=== PATIENT | female | born 1935 | race Caucasian/White ===

== ENCOUNTER 2016-09-11 11:49 | Inpatient (IN) ==
[2016-09-11] MEDS ORDERED: ACETAMINOPHEN 325 MG TABLET PO PRN ×2 (16:30→16:35)
[2016-09-11] MEDS ORDERED: SODIUM CHLORIDE 0.9% 250 ML IV PRN (16:30)
[2016-09-11] MEDS ORDERED: diphenhydrAMINE CAP 25 MG CAPSULE PO PRN (16:30)
[2016-09-11] MEDS ORDERED: DOCUSATE SODIUM 100 MG CAPSULE PO PRN (16:35)
[2016-09-11] MEDS ORDERED: ZALEPLON 5 MG CAPSULE PO PRN (16:35)
[2016-09-11] MEDS ORDERED: LACTULOSE 20 GM/30 ML UDCUP PO PRN (16:35)
[2016-09-11] MEDS ORDERED: PROMETHAZINE 25 MG TABLET PO PRN (16:35)
[2016-09-11] MEDS ORDERED: ONDANSETRON 4 MG/2 ML VIAL IV PRN (16:35)
[2016-09-11] MEDS ORDERED: BISACODYL 5 MG TABLET PO PRN (16:35)
--- NOTE | 2016-09-11 16:39 | Nephrology Consult Note ---
History of Present Illness Chief complaint: Increased BUN and creatinine History of present illness: Ms. Murrell is a 80 year old female who I have seen in the outpatient setting for increasing creatinine. The patient was referred about a month ago for an increased creatinine of 5 mg/dL. The patient had a normal creatinine about 9 months ago about 6-8 weeks ago the patient began to feel poorly and was noted to have a increased creatinine of around 4 mg/dL at that time she was subsequently admitted to her local hospital and started on antibiotics for UTI. The patient's symptoms persisted and her creatinine did not improve. When I saw her I did a antibody workup including an IVONNE Anca and anti-GBM as well as C3 and C4 which were unremarkable. The patient underwent a kidney biopsy last week the results of which are pending. This past week the patient states she is progressively felt worse with decreasing appetite and increasing nausea. Patient also has decreased energy and gets tired easily with minimal exertion. Patient has also had increased sleepiness. Today the patient states she was feeling very dizzy and passed out a couple of times. Patient's hematocrit was noted to be around 24% at her local emergency room today. During her previous hospitalization about 6-8 weeks ago she was noted to have a hematocrit of 21%. Patient was also noted to have a creatinine of 8 mg/dL today. ROS: Head - denies headaches ENT - denies sore throat Lymphatics - denies lymphadenopathy Hematology - denies bleeding problems Heart - denies chest pain Lungs - denies shortness of breath but gets tired easily Abdomen - denies abdominal pain Musculoskeletal -positive arthritis Skin - denies rash Neurology - denies stroke General - denies fever, she states she has been shaking a lot today in her hands -patient states she has not been making as much urine as she usually does and is been having some dysuria and itching. PE: General: in no acute distress Eyes: Pupils are round and reactive, conjunctivae are clear ENT: Nose is clear, O/P is benign Neck: Supple, no thyromegaly Lymphatics: No cervical, supraclavicular or axillary adenopathy Heart: Regular rate and rhythm, no edema Lungs: Clear to auscultation anteriorly, chest expansion symmetric Abdomen: Soft, normoactive bowel sounds, no hepatomegaly Musculoskeletal: No joint erythema or effusions or joint asymmetry Skin: Normal turgor, normal hydration, no rash Neuro/Psych: Alert and cooperative with fair insight Home Medications Medication Instructions Recorded Confirmed Type Amlodipine Besylate 2.5 mg PO DAILY 08/31/16 09/11/16 History Carvedilol [Coreg] 3.125 mg PO BID 08/31/16 09/11/16 History Ferrous Sulfate [Iron] 325 mg PO DAILY 08/31/16 09/11/16 History Linagliptin [Tradjenta] 5 mg PO DAILY W/BREAKFAST 08/31/16 09/11/16 History Lisinopril/Hydrochlorothiazide 1 each PO DAILY 08/31/16 09/11/16 History [Lisinopril-Hctz 20-25 mg Tab] Pravastatin [Pravachol] 40 mg PO DAILY 08/31/16 09/11/16 History cloNIDine TAB [Catapres Tab] 1 tablet PO TID 08/31/16 09/11/16 History Allergies Allergy/AdvReac Type Severity Reaction Status Date / Time codeine Allergy Severe Vomiting Verified 08/31/16 10:37 Medical,Surgical,& Family Hx - Medical History Cardio: History of: Hypertension Psychological: No history of: Anxiety Disorders, ADHD, Behavior Problems, Bipolar Disorder, Depression, Previous Suicide Attempt, Psychiatric/Substance Abuse Tx, Schizophrenia, Violent Behavior, Psychiatric Problems Neurology: No history of: Seizures HEENT: History of: Ear Problem Endocrine: History of: Diabetes Mellitus (NIDDM) Renal: History of: Renal Failure Gastrointestinal: Comment Only: Ulcerative Colitis (DIVERTICULITIS) Musculoskeletal: History of: Musculoskeletal Problems (OA) Reproductive: History of: Reproductive Problems - Surgical History Thoracic Surgeries: Comment Only: Kidney (Renal Surgery) (RENAL BX) Abdominal Surgeries: Surgical HX of: Colonoscopy, EGD Reproductive Surgeries: Surgical HX of;: Hysterectomy Orthopedic Surgeries: Surgical HX of;: Total Knee Replacement (RIGHT) - Family History Family History: Reports;: Family Cancer (BROTHER), Family Diabetes (DAD), Family Heart Disease (DAD BROTHER DAUGHTER), Family Hypertension (PARENTS), Family Stroke (DAUGHTER) - Social History Smoking Status: Never smoker Frequency of Alcohol Use: None Type of Drug Use: None Exam - Vital Signs Vital signs: Period Temp Pulse Resp BP Sys/Nieves Pulse Ox Last 24 Hr 98.0 F-98.1 F 101-112 18-20 151-166/68-83 97-100 Assessment and Plan (1) Acute renal failure Status: Acute Assessment and plan: This patient's biopsy is pending hopefully will clear some tomorrow, I am going to ask surgery to place a HD catheter and will start dialysis once that is in place. The patient's antibody workup has been unremarkable thus far. Current Visit: Yes (2) Diabetes mellitus Status: Acute Assessment and plan: I will place her on a soft sliding scale Current Visit: Yes (3) Hypertension Status: Acute Assessment and plan: We will resume her home antihypertensives Current Visit: Yes (4) Anemia Status: Acute Assessment and plan: I am going to transfuse her 2 units packed red blood cells in light of her syncopal spells. I will also check iron studies folate and B12, Hemoccult her stool and ask GI to see her in consultation Current Visit: Yes (5) Syncope Status: Acute Current Visit: Yes (6) Arthritis Status: Acute Current Visit: Yes (7) Dysuria Status: Acute Current Visit: Yes (8) Nausea Status: Acute Current Visit: Yes (9) Malaise Status: Acute Current Visit: Yes
[2016-09-11] MEDS ORDERED: GLUCAGON 1 MG VIAL IM PRN (16:48)
[2016-09-11] MEDS ORDERED: DEXTROSE 50% 25 GM/50 ML VIAL IV PRN (16:48)
[2016-09-11] MEDS: SODIUM CHLORIDE 0.9% 1,000 ML IV SCH (17:06)
[2016-09-11] MEDS: PANTOPRAZOLE 40 MG TABLET PO SCH (17:07)
[2016-09-11 17:33] LABS: Basophils % 0.2 % (0.0-0.8); Eosinophils % 0.1 % (0.00-10.9); Hematocrit 23.2 VOL% (35.7-47.0); Hemoglobin 7.8 GM/DL (12.0-16.0); Immature Granulocytes % 0.4 %; Immature Granulocytes Absolute 0.04 #; Lymphocytes # 1.7 10*3/uL (1.4-4.0); Lymphocytes % 17.3 % (21.3-54.2); Mean Corpuscular HGB Conc 33.6 GM/DL (32-36); Mean Corpuscular Hemoglobin 29 PG (27-34); Mean Corpuscular Volume 86.2 FL (87-102); Monocytes # 0.7 10*3/uL (0.11-0.8); Monocytes % 7.5 % (1.7-12.7); Neutrophils # 7.1 10*3/uL (1.4-7.4); Neutrophils % 74.5 % (38.7-73.9); Platelet Count 308 T/CUMM (130-400); Red Blood Count 2.69 MC/CUMM (3.8-5.5); Red Cell Distribution Width 12.5 % (9.3-17.3); White Blood Count 9.5 T/CUMM (4-12)
[2016-09-11 17:52] LABS: % Iron Saturation 59.4 % (18-50); Calcium 8.8 MG/DL (8.5-10.1); Ferritin 615.7 ng/ml (8-252); Osmolality,Calculated 309.5 MOS/KG (273-304); Phosphorous 9.9 MG/DL (2.5-4.9); Potassium 4.2 MMOL/L (3.5-5.1)
[2016-09-11 17:59] LABS: Folate > 24.0 NG/ML (5.4-24.0); Vitamin B12 660 PG/ML (211-911)
[2016-09-11] MEDS: INSULIN REGULAR 100 UNIT/ML SUBCUT SCH (20:40)
[2016-09-11] MEDS: CARVEDILOL 3.125 MG TABLET PO SCH (20:41)
[2016-09-11] MEDS: cloNIDine 0.1 MG TABLET PO SCH (20:41)
[2016-09-12 00:29] LABS: Apearance,Urine Slightly Hazy (Clear); Bacteria,Urine Occasional /HPF (Few); Bilirubin,Urine Negative (Negative); Blood, Urine Moderate mg/dL (Negative); Glucose,Urine (UA) 50 mg/dL (Negative); Ketones,Urine Negative (Negative); Nitrite,Urine Negative (Negative); Protein,Urine 30 MG/DL; RBC,Urine 1 /HPF (0-4); Squamous Epithelial Cell,Urine Occasional /HPF (0-10); Urine Color Straw (Yellow); Urine Specific Gravity 1.009 (1.001-1.035); Urine Urobilinogen < 2.0 EU/DL (0.2-1.0); WBC,Urine 4 /HPF (0-6)
[2016-09-12 06:43] LABS: Basophils % 0.5 % (0.0-0.8); Eosinophils # 0.1 10*3/uL (0.0-0.87); Eosinophils % 1.4 % (0.00-10.9); Hematocrit 27.9 VOL% (35.7-47.0); Immature Granulocytes % 0.4 %; Immature Granulocytes Absolute 0.03 #; Lymphocytes # 1.6 10*3/uL (1.4-4.0); Lymphocytes % 22.2 % (21.3-54.2); Mean Corpuscular HGB Conc 33.7 GM/DL (32-36); Mean Corpuscular Hemoglobin 30 PG (27-34); Mean Platelet Volume 11.7 FL (9.6-12.0); Monocytes # 0.9 10*3/uL (0.11-0.8); Monocytes % 11.7 % (1.7-12.7); Neutrophils # 4.7 10*3/uL (1.4-7.4); Neutrophils % 63.8 % (38.7-73.9); Red Blood Count 3.17 MC/CUMM (3.8-5.5); Red Cell Distribution Width 13.1 % (9.3-17.3); White Blood Count 7.4 T/CUMM (4-12)
--- NOTE | 2016-09-12 06:48 | Physician Query Form ---
CLICK EDIT DOCUMENT TO SELECT QUERY ANSWER --> OK --> SIGN Yaima Sol RN, CCDS Certified Clinical Backpackers Manager W) [phone] (f) [phone] [email or web address] PROVIDERS: Make your selection(s) from the choices in EACH section by typing an "x" and enter comments in the comment section. Please use your independent medical judgment in providing your response. This request does not imply that any particular answer is desired or expected. CLINICAL INDICATORS: (Providers should not edit this section) Patient admitted with acute renal failure, anemia, HH of 7.8/ 23.2 and the patient was given 2 units of blood. Based on the above, could you clarify which of the following conditions you are evaluating, treating, and/or monitoring? ( ) Blood loss anemia ( ) acute ( ) chronic ( ) acute on chronic ( ) Acute blood loss anemia on baseline chronic anemia ( ) Acute blood loss anemia as a complication of a procedure ( ) Iron deficiency anemia not associated with blood loss ( ) Dilutional anemia due to IV fluids ( ) Anemia due to chemotherapy ( ) Anemia due to neoplastic disease (x ) Anemia due to chronic kidney disease ( ) Pernicious anemia ( ) Aplastic anemia ( ) Hemolytic anemia ( ) immune ( ) non-immune - please specify cause: ( ) Anemia due to other condition, please specify: ( ) Clinically unable to determine COMMENTS: Use of terms such as suspected, likely, or probable (associated with a specific diagnosis that is being evaluated, monitored, or treated as if it exists) are acceptable and can be restated in the discharge summary if not ruled out. MTDD
[2016-09-12 06:55] LABS: Hemoglobin 9.4 GM/DL (12.0-16.0); Platelet Count 221 T/CUMM (130-400)
--- NOTE | 2016-09-12 07:09 | General Surgery Consult Note ---
Assessment and Plan (1) Acute renal failure Status: Acute Assessment and plan: Impression: End-stage renal disease Plan: I discussed placement of tunneled hemodialysis catheter with the patient so that she can begin dialysis. We discussed the procedure was performed and anticipated recovery. Risk of the procedure including bleeding, infection, damage to surrounding structures, need for further surgery were all discussed in detail. She would like to proceed. Current Visit: Yes History of Present Illness Chief complaint: consult for hemodialysis catheter placement History of present illness: Ms. Murrell is a 80 year old female admitted with worsening of her chronic renal failure. She is to begin dialysis today. I've been asked to place a tunneled hemodialysis catheter. Home Medications Medication Instructions Recorded Confirmed Type Amlodipine Besylate 2.5 mg PO DAILY 08/31/16 09/11/16 History Carvedilol [Coreg] 3.125 mg PO BID 08/31/16 09/11/16 History Ferrous Sulfate [Iron] 325 mg PO DAILY 08/31/16 09/11/16 History Linagliptin [Tradjenta] 5 mg PO DAILY W/BREAKFAST 08/31/16 09/11/16 History Lisinopril/Hydrochlorothiazide 1 each PO DAILY 08/31/16 09/11/16 History [Lisinopril-Hctz 20-25 mg Tab] Pravastatin [Pravachol] 40 mg PO DAILY 08/31/16 09/11/16 History cloNIDine TAB [Catapres Tab] 1 tablet PO TID 08/31/16 09/11/16 History Allergies Allergy/AdvReac Type Severity Reaction Status Date / Time codeine Allergy Severe Vomiting Verified 08/31/16 10:37 Medical,Surgical,& Family Hx - Medical History Cardio: History of: Hypertension Psychological: No history of: Anxiety Disorders, ADHD, Behavior Problems, Bipolar Disorder, Depression, Previous Suicide Attempt, Psychiatric/Substance Abuse Tx, Schizophrenia, Violent Behavior, Psychiatric Problems Neurology: No history of: Seizures HEENT: History of: Ear Problem Endocrine: History of: Diabetes Mellitus (NIDDM) Renal: History of: Renal Failure Gastrointestinal: Comment Only: Ulcerative Colitis (DIVERTICULITIS) Musculoskeletal: History of: Musculoskeletal Problems (OA) Reproductive: History of: Reproductive Problems - Surgical History Thoracic Surgeries: Comment Only: Kidney (Renal Surgery) (RENAL BX) Abdominal Surgeries: Surgical HX of: Colonoscopy, EGD Reproductive Surgeries: Surgical HX of;: Hysterectomy Orthopedic Surgeries: Surgical HX of;: Total Knee Replacement (RIGHT) - Family History Family History: Reports;: Family Cancer (BROTHER), Family Diabetes (DAD), Family Heart Disease (DAD BROTHER DAUGHTER), Family Hypertension (PARENTS), Family Stroke (DAUGHTER) - Social History Smoking Status: Never smoker Frequency of Alcohol Use: None Type of Drug Use: None Exam - Constitutional Vitals: Period Temp Pulse Resp BP Sys/Nieves Pulse Ox Last 24 Hr 98.0 F-99.7 F 89-115 18-20 124-175/67-88 93-100 General appearance: no acute distress - Head Head exam: Present: normocephalic - ENT Mouth exam: Present: normal external inspection - Neck Neck exam: Present: normal inspection - Respiratory Respiratory exam: Present: other (course bilaterally) - Cardiovascular Cardiovascular exam: Present: RRR - GI/Abdominal GI/Abdominal exam: Present: soft (nontender nondistended) - Extremities Exam Extremities exam: Present: normal inspection - Back Exam Back exam: Present: normal inspection - Neurological Exam Neurological exam: Present: alert, oriented X3 Speech: Present: normal - Skin Skin exam: Present: normal color Results - Labs CBC & BMP: 09/12/16 05:52 09/11/16 16:55 Lab Results: I have reviewed the past 24 hour labs
[2016-09-12 07:21] LABS: Calcium 8.2 MG/DL (8.5-10.1); Osmolality,Calculated 308.2 MOS/KG (273-304); Potassium 4.2 MMOL/L (3.5-5.1)
[2016-09-12] MEDS: CARVEDILOL 3.125 MG TABLET PO SCH ×3 (07:51→20:11)
[2016-09-12] MEDS: PANTOPRAZOLE 40 MG TABLET PO SCH ×2 (07:51→08:01)
[2016-09-12] MEDS: LISINOPRIL/HCTZ 20-25 MG TABLET PO SCH ×2 (07:51→08:01)
[2016-09-12] MEDS: amLODIPine 2.5 MG TABLET PO SCH ×2 (07:52→08:01)
[2016-09-12] MEDS: cloNIDine 0.1 MG TABLET PO SCH ×4 (07:52→20:10)
[2016-09-12] MEDS: INSULIN REGULAR 100 UNIT/ML SUBCUT SCH ×4 (07:52→20:21)
[2016-09-12] MEDS: sitaGLIPtin 25 MG TABLET PO SCH (08:01)
[2016-09-12] MEDS ORDERED: HEPARIN 5,000 UNIT/1 ML VIAL ONE (08:47)
[2016-09-12] MEDS ORDERED: BUPIVACAINE MPF 0.25% /EPI 30 ML VIAL ONE (08:47)
[2016-09-12] MEDS ORDERED: LIDOCAINE 1%/EPI INJ 20 ML VIAL ONE (08:48)
[2016-09-12] MEDS ORDERED: ONDANSETRON 4 MG/2 ML VIAL ONE (08:55)
[2016-09-12] MEDS ORDERED: LIDOCAINE 1% 5 ML VIAL ONE (08:55)
[2016-09-12] MEDS ORDERED: PROPOFOL 200 MG/20 ML VIAL IV ONE (08:55)
[2016-09-12] MEDS ORDERED: PRAVASTATIN 40 MG TABLET PO SCH (09:00)
[2016-09-12] MEDS ORDERED: ceFAZolin 1,000 MG VIAL ONE (09:11)
--- NOTE | 2016-09-12 09:40 | Anesthesia Post-Op ---
Anesthesia Post OP - Post Ansesthetic Evaluation Patient seen in post op: Yes Resp: within normal limits CV: within normal limits Mental: within normal limits Temp: within normal limits [id number]-[id number]: within normal limits Nausea and Vomiting: within normal limits Pain: within normal limits
[2016-09-12] MEDS ORDERED: fentaNYL 100 MCG/2 ML VIAL ONE (09:41)
[2016-09-12] MEDS ORDERED: MIDAZOLAM 2 MG/2 ML VIAL ONE (09:41)
--- NOTE | 2016-09-12 10:14 | XRay Report ---
XR chest 1V portable Indication: Hemodialysis catheter placement. Comparison: None. Technique: Portable AP chest was performed. Findings: Heart size is normal. Atherosclerotic changes of the aortic knob are present. Lungs are clear. Bones and soft tissues demonstrate no evidence of acute pathology. Right-sided hemodialysis catheter terminates within the superior vena cava. Impression: 1. No evidence of acute pathology. Hemodialysis catheter placement as detailed. 09/12/2016 10:11 AM PROCEDURE INTERPRETED AT [facility] DEPARTMENT OF RADIOLOGY Final Report Signed by: Dr. Rashad Sol
[2016-09-12 11:47] LABS: Hepatitis A Ab IgM Quant 0.27 Index; Hepatitis A Ab IgM Result Negative (Negative); Hepatitis B Core IgM Quant 0.16 Index; Hepatitis B Core IgM Result Negative (Negative); Hepatitis C Virus Ab Quant 0.09 Index; Hepatitis C Virus Ab Result Negative (Negative)
--- NOTE | 2016-09-12 12:19 | Operative Note ---
Date of procedure: 09/12/16 Pre-op diagnosis: End-stage renal disease Post-op diagnosis: same Procedure: Procedure performed: Placement of right internal jugular tunneled hemodialysis catheter #2 ultrasound-guided venous access #3 supervision and interpretation fluoroscopy Procedure in detail: After informed consent was obtained, patient was taken operating suite and placed upon the operating table. After monitored anesthesia initiated bilateral neck and chest were prepped and draped in usual sterile fashion. A procedural pause ultrasound was brought after a sterile sleeve covering ultrasound the right neck revealed a patent compressible right internal jugular vein. Right internal jugular vein was accessed using an 18- gauge Seldinger needle under ultrasound guidance. There was return of nonpulsatile dark red blood. Guidewire inserted without resistance. Fluoroscopy demonstrated a guidewire to be coursing in appropriate position. Next a 23 cm cuff hemodialysis cath was tunneled from separate incision in the right chest wall up to advise the right neck. Dilator and sheath were placed over the guidewire using Seldinger technique under fluoroscopic guidance. Dilator and guidewire were removed leaving the sheath in place. The catheter inserted through the sheath and the sheath peeled away leaving the catheter tip in superior vena cava. Catheter withdrew and flushed easily and was locked with heparinized saline. It was secured in place with 2-0 nylon. Incision closed with 3-0 nylon. Sterile dressings applied. The patient was taken to recovery room in stable condition. All lap and needle counts correct at the end of the case. Anesthesia: MAC, local Surgeon / Physician: Lukas James Estimated blood loss: other (Less than 10 cc) Specimens: none sent Condition: stable Disposition: PACU Results - Labs CBC & BMP: 09/12/16 05:52 09/12/16 05:52 Discharge Plan - Discharge Medications No Action cloNIDine TAB [Catapres Tab] 1 tablet PO TID Lisinopril/Hydrochlorothiazide [Lisinopril-Hctz 20-25 mg Tab] 1 each PO DAILY Linagliptin [Tradjenta] 5 mg PO DAILY W/BREAKFAST Pravastatin [Pravachol] 40 mg PO DAILY Ferrous Sulfate [Iron] 325 mg PO DAILY Carvedilol [Coreg] 3.125 mg PO BID Amlodipine Besylate 2.5 mg PO DAILY - Follow Up or Referral - Forms/Instructions
[2016-09-12] MEDS: SODIUM CHLORIDE 0.9% 1,000 ML IV SCH (14:05)
--- NOTE | 2016-09-12 14:17 | Gastrointestinal Consult Note ---
<Jame Herediaher Brittany - Last Filed: 09/12/16 14:13> Assessment and Plan (1) Anemia Status: Acute Assessment and plan: [id number] history of anemia with iron therapy. Admitted with symptomatic anemia with hemoglobin of 7.8. Received 2 units of packed red blood cells with hemoglobin now 9.4. Iron studies noted below. Obtain prior endoscopy records from [facility]. Plan an addendum to follow by Dr. Partida. Current Visit: Yes History of Present Illness Chief complaint: Anemia History of present illness: Ms. Murrell is a 80 year old female who was admitted to the hospital for increased weakness. Patient is a fair historian therefore information collected from patient and from chart review. Patient has been seen as an outpatient by Dr. De La Vega for increasing creatinine. She is reported to have had a normal creatinine approximately 9 months ago and over the last couple of months it is continue to increase. She underwent a kidney biopsy last week with results still pending at this time. Over the last several days patient states she has had a declining appetite and has had increased nausea and weakness. She states that minimal exertion causes her to become fatigued. She has also been increasingly somnolent. She presented to [facility] on yesterday and was referred to our facility for further care. Upon admission , she had a hemodialysis catheter placed and began dialysis on today. 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 She states that her last colonoscopy was done 5-6 years ago at [facility] and the only findings reported were diverticulosis. She reports having blood transfusions a couple times in the past but states that related to surgical procedures. She denies any recent weight loss, fever or chills. She denies any melena or hematochezia. Denies any vomiting with coffee-ground emesis or hematemesis. She denies any epigastric pain, reflux symptoms, or dyspepsia. She states her bowels move on a regular basis for the most part. She denies NSAID use. Denies history of peptic ulcer disease. She denies a family history of colon cancer. She does not take a PPI on a routine basis. Patient's hemoglobin 7.8 on admission. Iron studies noted with iron at 164, TIBC 276, Saturation 59.4, Ferritin 615. Home Medications Medication Instructions Recorded Confirmed Type Amlodipine Besylate 2.5 mg PO DAILY 08/31/16 09/11/16 History Carvedilol [Coreg] 3.125 mg PO BID 08/31/16 09/11/16 History Ferrous Sulfate [Iron] 325 mg PO DAILY 08/31/16 09/11/16 History Linagliptin [Tradjenta] 5 mg PO DAILY W/BREAKFAST 08/31/16 09/11/16 History Lisinopril/Hydrochlorothiazide 1 each PO DAILY 08/31/16 09/11/16 History [Lisinopril-Hctz 20-25 mg Tab] Pravastatin [Pravachol] 40 mg PO DAILY 08/31/16 09/11/16 History cloNIDine TAB [Catapres Tab] 1 tablet PO TID 08/31/16 09/11/16 History Allergies Allergy/AdvReac Type Severity Reaction Status Date / Time codeine Allergy Severe Vomiting Verified 08/31/16 10:37 Medical,Surgical,& Family Hx - Medical History Cardio: History of: Hypertension Psychological: No history of: Anxiety Disorders, ADHD, Behavior Problems, Bipolar Disorder, Depression, Previous Suicide Attempt, Psychiatric/Substance Abuse Tx, Schizophrenia, Violent Behavior, Psychiatric Problems Neurology: No history of: Seizures HEENT: History of: Ear Problem Endocrine: History of: Diabetes Mellitus (NIDDM) Renal: History of: Renal Failure Gastrointestinal: Comment Only: Ulcerative Colitis (DIVERTICULITIS) Musculoskeletal: History of: Musculoskeletal Problems (OA) Reproductive: History of: Reproductive Problems - Surgical History Thoracic Surgeries: Comment Only: Kidney (Renal Surgery) (RENAL BX) Abdominal Surgeries: Surgical HX of: Colonoscopy, EGD Reproductive Surgeries: Surgical HX of;: Hysterectomy Orthopedic Surgeries: Surgical HX of;: Total Knee Replacement (RIGHT) - Family History Family History: Reports;: Family Cancer (BROTHER), Family Diabetes (DAD), Family Heart Disease (DAD BROTHER DAUGHTER), Family Hypertension (PARENTS), Family Stroke (DAUGHTER) - Social History Smoking Status: Never smoker Frequency of Alcohol Use: None Type of Drug Use: None 12 point system: reviewed and no additional remarkable complaints except as stated - Constitutional Constitutional: Present: as per HPI, fatigue, weakness - EENT Eyes: Present: as per HPI Ears: Present: as per HPI Nose, mouth and throat: Present: as per HPI - Cardiovascular Cardiovascular: Present: as per HPI - Respiratory Respiratory: Present: as per HPI - Gastrointestinal Gastrointestinal: Present: as per HPI - Genitourinary Genitourinary: Present: as per HPI - Musculoskeletal Musculoskeletal: Present: as per HPI - Neurological Neurological: Present: as per HPI - Psychiatric Psychiatric: Present: as per HPI - Endocrine Endocrine: Present: as per HPI - Hematologic/Lymphatic Hematologic/Lymphatic: Present: as per HPI Exam - Constitutional Vitals: Period Temp Pulse Resp BP Sys/Nieves Pulse Ox Last 24 Hr 97.1 F-99.7 F 71-115 16-20 123-175/66-88 93-100 General appearance: normal weight, no acute distress - Head Head exam: Present: normal inspection, normocephalic - Eye Eye exam: Present: other (Lids and conjunctivae unremarkable). Absent: scleral icterus - ENT ENT exam: Present: normal exam, normal oropharynx - Neck Neck exam: Present: normal inspection - Respiratory Respiratory exam: Present: clear to auscultation bilaterally. Absent: rales, rhonchi, wheezes - Cardiovascular Cardiovascular exam: Present: regular rate and rhythm. Absent: diastolic murmur , JVD, systolic murmur - GI/Abdominal GI/Abdominal exam: Present: normal bowel sounds, soft. Absent: ascites, distended, mass, organomegaly, tenderness - Extremities Exam Extremities exam: Present: normal inspection, full ROM - Back Exam Back exam: Present: normal inspection - Neurological Exam Neurological exam: Present: alert, oriented X3 - Psychiatric Psychiatric exam: Present: normal affect, normal mood - Skin Skin exam: Present: normal color, warm, dry Results - Labs CBC & BMP: 09/12/16 05:52 09/12/16 05:52 Lab Results: I have reviewed the past 24 hour labs <Maximo Partida - Last Filed: 09/12/16 22:33> History of Present Illness Chief complaint: 3030 History of present illness: Ms. Murrell is a 80 year old female Exam - Constitutional Vitals: Period Temp Pulse Resp BP Sys/Nieves Pulse Ox Last 24 Hr 97.1 F-98.8 F 71-115 16-20 123-151/66-77 93-99 Results - Labs CBC & BMP: 09/12/16 05:52 09/12/16 05:52
--- NOTE | 2016-09-12 15:13 | Nephrology Progress Note ---
Nephrology - PN: Subj Interval history: Patient is seen on hemodialysis, she is tolerating this well, she states she feels better some after getting 2 units packed red blood cells yesterday. Physical exam general the patient in no acute distress, she is chronically ill- appearing Assessment/plan 1. Acute renal failure-this patient's creatinine is increased to 8 mg/dL from around 5 mg/dL month or so ago, her kidney biopsy done last week has a preliminary report of acute tubular injury, in light of this I am going to check a CPK and myoglobin studies and I will stop her statin therapy 2. Anemia 3. Diabetes mellitus 4. Syncope Exam (PN)-Nephrology - Vital Signs Vital signs: Period Temp Pulse Resp BP Sys/Nieves Pulse Ox Last 24 Hr 97.1 F-99.7 F 71-115 16-20 123-175/66-88 93-100 - Lab 09/12/16 05:52 09/12/16 05:52 Most recent lab results Calcium 8.2 MG/DL (8.5-10.1) L 09/12/16 05:52 Phosphorus 9.9 MG/DL (2.5-4.9) H 09/11/16 16:55 Assessment and Plan (1) Acute renal failure Status: Acute Assessment and plan: This patient's biopsy is pending hopefully will clear some tomorrow, I am going to ask surgery to place a HD catheter and will start dialysis once that is in place. The patient's antibody workup has been unremarkable thus far. Current Visit: Yes (2) Diabetes mellitus Status: Acute Assessment and plan: I will place her on a soft sliding scale Current Visit: Yes (3) Hypertension Status: Acute Assessment and plan: We will resume her home antihypertensives Current Visit: Yes (4) Anemia Status: Acute Assessment and plan: I am going to transfuse her 2 units packed red blood cells in light of her syncopal spells. I will also check iron studies folate and B12, Hemoccult her stool and ask GI to see her in consultation Current Visit: Yes (5) Syncope Status: Acute Current Visit: Yes (6) Arthritis Status: Acute Current Visit: Yes (7) Dysuria Status: Acute Current Visit: Yes (8) Nausea Status: Acute Current Visit: Yes (9) Malaise Status: Acute Current Visit: Yes
[2016-09-12] MEDS ORDERED: HEPARIN 10,000 UNIT/10 ML VIAL IV PRN (15:19)
[2016-09-13 05:07] LABS: Hepatitis B Surface Ag Quant < 0.10 Index; Hepatitis B Surface Ag Result Negative (Negative)
[2016-09-13] MEDS: SODIUM CHLORIDE 0.9% 1,000 ML IV SCH (05:30)
[2016-09-13] MEDS: INSULIN REGULAR 100 UNIT/ML SUBCUT SCH ×4 (08:16→20:21)
[2016-09-13] MEDS: CARVEDILOL 3.125 MG TABLET PO SCH (08:16)
[2016-09-13] MEDS: cloNIDine 0.1 MG TABLET PO SCH ×3 (08:16→20:28)
[2016-09-13] MEDS: amLODIPine 2.5 MG TABLET PO SCH (08:16)
[2016-09-13] MEDS: sitaGLIPtin 25 MG TABLET PO SCH (08:16)
[2016-09-13] MEDS: LISINOPRIL/HCTZ 20-25 MG TABLET PO SCH (08:16)
[2016-09-13] MEDS: PANTOPRAZOLE 40 MG TABLET PO SCH (08:17)
--- NOTE | 2016-09-13 08:25 | EKG Report ---
Stationary ECG Study [facility] Test Date: 09/13/2016 8:26:40 AM Pat Name: SHARON NICHOLE Department: Room: 542 Gender: F Puzzle Assembler: MARILYN : 1935 Requested by: Magdalena Doyle Order Number: [id number] Reading MD: HEAVEN ROQUE Intervals [place] Rate: 89 P: 27 RI: 167 QRS: -18 QRSD: 101 T: 54 QT: 349 QTc: 396 Interpretive Statements SINUS RHYTHM Electronically Signed On 09-17-16 07:45:48 CDT by HEAVEN ROQUE [id number]
--- NOTE | 2016-09-13 08:59 | Nephrology Progress Note ---
Nephrology - PN: Subj Interval history: Patient is feeling better today. She states she did not sleep very well last night. Review of systems musculoskeletal-patient has been up to the bathroom and is moving around some. Review of [id number] patient's preliminary report on her kidney biopsy from last week shows a acute tubular necrosis injury with staining a myoglobin present suggestive of a rhabdomyolysis type injury. I reviewed the patient's history this morning she began having problems in March with a urinary tract infection was treated with antibiotics at that time then later in April she began to feel bad with flulike symptoms and was diagnosed with upper respiratory infection and was again treated with antibiotics. She states she has felt bad since then she was hospitalized in July and found to have a creatinine of 5 mg/dL, she was taken off metformin at that time and started on Januvia, the patient states she been taking a cholesterol medicine (statin) for many years, she denies ever having any dark or coke colored urine. Physical exam general the patient is in no acute distress Assessment/plan 1. Acute renal failure-this patient has an ATN type injury on biopsy with myoglobin staining suggestive of rhabdomyolysis, I have stopped her statin drug, I am also going to stop her lisinopril hydrochlorothiazide, her CPK and urine myoglobin were unremarkable, I am going to check a haptoglobin LDH and total bilirubin for signs of hemolysis. We will continue hemodialysis support 2. Metabolic acidosis this should improve on hemodialysis we will recheck a BMP today 3. Hyperphosphatemia-this may be related to muscle injury and rhabdomyolysis versus relation from kidney dysfunction 4. Anemia-patient's to have upper endoscopy today see #1 above 5. Hypertension-decreased her clonidine and stopped her lisinopril hydrochlorothiazide. I am going to increase her amlodipine and Coreg Exam (PN)-Nephrology - Vital Signs Vital signs: Period Temp Pulse Resp BP Sys/Nieves Pulse Ox Last 24 Hr 97.1 F-98.6 F 71-100 16-20 120-151/66-82 95-99 - Lab 09/12/16 05:52 09/12/16 05:52 Most recent lab results Calcium 8.2 MG/DL (8.5-10.1) L 09/12/16 05:52 Phosphorus 9.9 MG/DL (2.5-4.9) H 09/11/16 16:55 Assessment and Plan (1) Acute renal failure Status: Acute Assessment and plan: This patient's biopsy is pending hopefully will clear some tomorrow, I am going to ask surgery to place a HD catheter and will start dialysis once that is in place. The patient's antibody workup has been unremarkable thus far. Current Visit: Yes (2) Diabetes mellitus Status: Acute Assessment and plan: I will place her on a soft sliding scale Current Visit: Yes (3) Hypertension Status: Acute Assessment and plan: We will resume her home antihypertensives Current Visit: Yes (4) Anemia Status: Acute Assessment and plan: I am going to transfuse her 2 units packed red blood cells in light of her syncopal spells. I will also check iron studies folate and B12, Hemoccult her stool and ask GI to see her in consultation Current Visit: Yes (5) Syncope Status: Acute Current Visit: Yes (6) Arthritis Status: Acute Current Visit: Yes (7) Dysuria Status: Acute Current Visit: Yes (8) Nausea Status: Acute Current Visit: Yes (9) Malaise Status: Acute Current Visit: Yes
[2016-09-13] MEDS: amLODIPine 5 MG TABLET PO SCH (09:33)
[2016-09-13] MEDS: CARVEDILOL 6.25 MG TABLET PO SCH ×2 (09:33→20:28)
[2016-09-13 10:10] LABS: Calcium 8.3 MG/DL (8.5-10.1); Osmolality,Calculated 297.8 MOS/KG (273-304); Potassium 4.1 MMOL/L (3.5-5.1)
[2016-09-13 10:14] LABS: Albumin 3.7 G/DL (3.4-5.0); Bilirubin,Direct 0.1 MG/DL (0.0-0.20); Bilirubin,Indirect 0.5 MG/DL (0.0-1.0); Bilirubin,Total 0.6 MG/DL (0.2-1.0); Total Protein 6.7 G/DL (6.4-8.3)
--- NOTE | 2016-09-13 11:05 | History and Physical Update ---
History and Physical Update - Physical Exam Mental Status: alert and oriented Heart: regular rate and rhythm Lung: clear to auscultation Abdomen: within normal limits Vitals: within normal limits
--- NOTE | 2016-09-13 11:07 | Operative Note ---
Date of procedure: 09/13/16 Pre-op diagnosis: Iron deficiency anemia Procedure: EGD 80-year-old female with acute renal failure also noted to have anemia now for upper endoscopy. Informed consent was obtained for the patient and her family. She was sedated with MAC anesthesia per anesthesia protocol. Patient placed left lateral decubitus position the Olympus flexible video upper endoscope was inserted into the oral cavity under direct vision the esophagus was intubated. Findings: Esophagus-normal proximal mid esophageal mucosa distal esophagus with moderate hiatal hernia. No significant esophagitis, Steiner's or varices were seen. Mild stricture is noted but was not dilated since she is complaining of no dysphagia complaints. Stomach-normal insufflation there are several angiodysplasia noted in the body and antrum of the stomach no active bleeding is present. Remaining stomach is normal to direct retroflexed views of the body fundus and cardia the stomach. Pylorus patulous. Duodenum-normal for the bulb and duodenum to the third portion of duodenum no angiodysplasia were identified. The procedure terminated placed our procedure well she is discharged recovery in good condition. Postop diagnosis: 1. Gastroesophageal reflux disease with hiatal hernia-continue PPI treatment 2. Esophageal stricture clinically asymptomatic repeat dilatation as needed 3. Angiodysplasia likely source of ongoing blood loss anemia which she reports being chronic. When she is over her acute illness consideration of repeat colonoscopy is advised but suspect her long-standing anemia is related to continued blood loss from angiodysplasia which is best treated by trying to maximize her blood production capabilities with iron and minimizing anticoagulants. Anesthesia: MAC Surgeon / Physician: Maximo Partida Estimated blood loss: none Specimens: none sent Condition: stable Disposition: post procedure unit (2122) Results - Labs CBC & BMP: 09/12/16 05:52 09/13/16 09:19 Discharge Plan - Discharge Medications No Action cloNIDine TAB [Catapres Tab] 1 tablet PO TID Lisinopril/Hydrochlorothiazide [Lisinopril-Hctz 20-25 mg Tab] 1 each PO DAILY Linagliptin [Tradjenta] 5 mg PO DAILY W/BREAKFAST Pravastatin [Pravachol] 40 mg PO DAILY Ferrous Sulfate [Iron] 325 mg PO DAILY Carvedilol [Coreg] 3.125 mg PO BID Amlodipine Besylate 2.5 mg PO DAILY - Follow Up or Referral - Forms/Instructions
--- NOTE | 2016-09-13 11:25 | Anesthesia Post-Op ---
Anesthesia Post OP - Post Ansesthetic Evaluation Patient seen in post op: Yes Resp: within normal limits CV: within normal limits Mental: within normal limits Temp: within normal limits [id number]: within normal limits Nausea and Vomiting: within normal limits Pain: within normal limits
[2016-09-13] MEDS ORDERED: LIDOCAINE 2% 5 ML VIAL ONE (11:57)
[2016-09-13] MEDS ORDERED: PROPOFOL 200 MG/20 ML VIAL IV ONE (11:57)
[2016-09-14 07:58] VITALS: BP 128/70
[2016-09-14] MEDS: INSULIN REGULAR 100 UNIT/ML SUBCUT SCH ×2 (08:04→15:08)
[2016-09-14] MEDS: amLODIPine 5 MG TABLET PO SCH (08:12)
[2016-09-14] MEDS: PANTOPRAZOLE 40 MG TABLET PO SCH (08:12)
[2016-09-14] MEDS: cloNIDine 0.1 MG TABLET PO SCH (08:12)
[2016-09-14] MEDS: CARVEDILOL 6.25 MG TABLET PO SCH (08:12)
[2016-09-14] MEDS: sitaGLIPtin 25 MG TABLET PO SCH (08:12)
--- NOTE | 2016-09-14 08:29 | Gastrointestinal Progress Note ---
<YanLena Brittany - Last Filed: 09/14/16 08:27> Assessment and Plan (1) Anemia Status: Acute Assessment and plan: 09/14-EGD findings noted. Tolerating diet well. No overt bleeding. Recheck H& H. Discussed scheduling colonoscopy in the future when renal failure improves. Plan an addendum to follow by Dr. Partida. [id number] history of anemia with iron therapy. Admitted with symptomatic anemia with hemoglobin of 7.8. Received 2 units of packed red blood cells with hemoglobin now 9.4. Iron studies noted below. Obtain prior endoscopy records from [facility]. Plan an addendum to follow by Dr. Partida. Current Visit: Yes Gastroenterology - PN: Subj Interval history: CC: Anemia Patient is seen awake and alert sitting up in bed with daughter at bedside. States she had a restful night. Patient states she had a good breakfast this morning and tolerated it well without any abdominal pain, nausea or vomiting. No repeat blood work noted this morning. Will order recheck on her hemoglobin. EGD findings noted and discussed with family at bedside again. Also discussed that patient will need repeat colonoscopy in the future as her renal failure improves. Patient agrees. Abdomen is soft, nontender. She is having good bowel movements with no overt bleeding. ROS: Denies shortness of breath or chest pain Exam (Progress Note) - Constitutional Vitals: Period Temp Pulse Resp BP Sys/Nieves Pulse Ox Last 24 Hr 97.3 F-98.6 F 81-119 14-20 124-169/60-100 90-100 General appearance: normal weight, no acute distress - Head Head exam: Present: normal inspection, normocephalic - Eye Eye exam: Present: other (Lids and conjunctive are unremarkable). Absent: scleral icterus - ENT ENT exam: Present: normal exam, normal oropharynx - Neck Neck exam: Present: normal inspection - Respiratory Respiratory exam: Present: clear to auscultation bilaterally. Absent: rales, rhonchi, wheezes - Cardiovascular Cardiovascular exam: Present: regular rate and rhythm. Absent: diastolic murmur , JVD, systolic murmur - GI/Abdominal GI/Abdominal exam: Present: normal bowel sounds, soft. Absent: ascites, distended, mass, organomegaly, tenderness - Extremities Exam Extremities exam: Present: normal inspection, full ROM - Back Exam Back exam: Present: normal inspection - Neurological Exam Neurological exam: Present: alert, oriented X3 - Psychiatric Psychiatric exam: Present: normal affect, normal mood - Skin Skin exam: Present: normal color, warm, dry Results - Labs CBC & BMP: 09/12/16 05:52 09/13/16 09:19 Lab Results: I have reviewed the past 24 hour labs Specialty Discharge - Follow Up or Referrals Follow up with: Lukas James MD [Physician] - <Maximo Partida - Last Filed: 09/14/16 11:06> Exam (Progress Note) - Constitutional Vitals: Period Temp Pulse Resp BP Sys/Nieves Pulse Ox Last 24 Hr 97.9 F-98.6 F 81-119 14-20 124-161/60-77 90-100 Results - Labs CBC & BMP: 09/14/16 08:28 09/13/16 09:19
[2016-09-14 08:52] LABS: Hematocrit 28.2 VOL% (35.7-47.0); Hemoglobin 9.4 GM/DL (12.0-16.0)
--- NOTE | 2016-09-14 11:52 | Discharge Summary ---
Hospital Course - Hospital Course Hospital Course: Ms. Murrell is a 80-year-old white lady that was admitted for uremia. The patient had a creatinine of 8 mg/dL a decreased appetite malaise and some nausea and vomiting. The patient had had a kidney biopsy about a week ago this revealed a acute tubular necrosis injury with myoglobin staining suggestive of a rhabdomyolysis injury. The patient's CPK and urine myoglobin were unremarkable, the patient was on a statin drug and this was stopped. The patient was initiated on dialysis and also transfuse for a low hematocrit of 23% . With these interventions the patient is feeling better. The patient's kidneys were have not recovered and we plan on continuing hemodialysis for the time being. The patient had a normal creatinine about 8 months ago her creatinine was first noted be elevated about a month ago in July was around 6 mg/dL. The patient first became sick back in March around when she had a UTI and was treated with antibiotics she subsequently became ill about a month later with the recurrence of her urinary tract infection and was put on chronic suppressive antibiotic therapy for recurrent UTIs. At this time the patient is tolerating dialysis well and is to be discharged home she will follow-up with Jacob for sending us medical care for outpatient hemodialysis this Saturday at 11:30 AM. Will make arrangements for home health with rehab. - Time spent with patient Time with patient DS: Greater than 30 minutes Diagnosis - Discharge Diagnosis (1) Acute renal failure Status: Acute (2) Diabetes mellitus Status: Acute (3) Hypertension Status: Acute (4) Anemia Status: Acute (5) Syncope Status: Acute (6) Arthritis Status: Acute (7) Dysuria Status: Acute (8) Nausea Status: Acute (9) Malaise Status: Acute Specialty Discharge - Follow Up or Referrals Follow up with: Lukas James MD [Physician] - Discharge Plan - Discharge Data Disposition: Disch To Home/Self Care Condition at Discharge: Stable Discharge Diet: advance to your usual diet - Discharge Medications New Pantoprazole Tab [Protonix Tab] 40 mg PO DAILY #30 tablet cloNIDine TAB [Catapres Tab] 0.1 mg PO BID #60 tablet Carvedilol [Coreg] 6.25 mg PO BID #60 tablet amLODIPine [Norvasc] 5 mg PO DAILY #30 tablet Continue Linagliptin [Tradjenta] 5 mg PO DAILY W/BREAKFAST Discontinued cloNIDine TAB [Catapres Tab] 1 tablet PO TID Lisinopril/Hydrochlorothiazide [Lisinopril-Hctz 20-25 mg Tab] 1 each PO DAILY Pravastatin [Pravachol] 40 mg PO DAILY Ferrous Sulfate [Iron] 325 mg PO DAILY Carvedilol [Coreg] 3.125 mg PO BID Amlodipine Besylate 2.5 mg PO DAILY - Follow Up or Referral Follow Up: Lukas James MD [Physician] - - Forms/Instructions Additional Discharge Instructions: Follow-up with hemodialysis in [facility] on Saturday of next week at 11:30 AM Exam - Constitutional Vitals: Period Temp Pulse Resp BP Sys/Nieves Pulse Ox Last 24 Hr 97.9 F-98.6 F 81-119 16-20 124-158/60-77 90-98 Discharge Results Procedures and tests throughout hospitalization: Pending Orders 09/11/16 16:33 Occult Blood, Stool Routine 09/11/16 16:44 Urine Culture Routine 09/12/16 15:26 Myoglobin, Serum Routine Labs on day of discharge: Labs from last 24 hours 09/14/16 09/14/16 09/13/16 08:28 06:58 20:14 Hgb 9.4 L Hct 28.2 L POC Glucose 160 H 189 H 09/13/16 17:12 Hgb Hct POC Glucose 161 H Preliminary micro results at discharge 09/12/16 00:00 Urine Culture - Preliminary Urine,Clean Catch Gram Negative Rods DS: Provider Date of admission: 09/11/16 13:32 Primary care physician: . No PCP Attending physician on admission: Sony De La Vega MD Consults: 09/11/16 14:15 Consult to Dietitian [CONS] Routine Reason for Dietitian: Other 09/11/16 16:29 Consult to Physician [CONS] Routine Comment: General surgery for HD catheter Consulting Provider: Lukas James Person Notified: Dr. James Date Notified: 09/11/16 Time Notified: 16:54 09/11/16 16:34 Consult to Physician [CONS] Routine Comment: [facility] [place] anemia Consulting Provider: Maximo Partida 09/12/16 17:17 Consult to Case Mgmt/Social Srvs [CONS] Routine Reason for Case Mgmt/Social Srvs: Dialysis Consult Comment: Help arrange outpatient dialysis 09/13/16 15:37 Consult to Case Mgmt/Social Srvs [CONS] Routine Reason for Case Mgmt/Social Srvs: Swingbed/SNF/Residential 09/13/16 15:38 Consult to Occupational Therapy [CONS] Routine Reason for Occupational Therapy: Evaluate and Treat Consult Comment: for SNF placement Consult to Physical Therapy [CONS] Routine Reason for Physical Therapy: Evaluate and Treat Consult Comment: for SNF placement Discharging clinician: Sony De La Vega MD
== END 2016-09-14 16:10 | disposition home health service (06) | DRG 682 ==
LOC: N.5E 13:32
PROVIDERS: ADMIT Internal Medicine Nephrology; ATTEND Internal Medicine Nephrology

== ENCOUNTER 2017-12-11 00:37 | Inpatient (IN) ==
[2017-12-11] MEDS ORDERED: ONDANSETRON 4 MG/2 ML VIAL IV PRN (03:53)
[2017-12-11] MEDS ORDERED: DEXTROSE 50% 25 GM/50 ML VIAL IV PRN (03:53)
[2017-12-11] MEDS ORDERED: GLUCAGON 1 MG VIAL IM PRN (03:53)
[2017-12-11] MEDS ORDERED: hydrALAZINE 20 MG/1 ML VIAL IV STA (04:03)
[2017-12-11 05:46] LABS: Basophils # 0.1 10*3/uL (0.0-0.2); Basophils % 0.6 % (0.0-0.8); Eosinophils % 0.2 % (0.00-10.9); Hematocrit 28.8 VOL% (35.7-47.0); Hemoglobin 9.5 GM/DL (12.0-16.0); Immature Granulocytes % 0.5 %; Immature Granulocytes Absolute 0.04 #; Lymphocytes # 1.1 10*3/uL (1.4-4.0); Lymphocytes % 13.3 % (21.3-54.2); Mean Corpuscular Hemoglobin 30 PG (27-34); Mean Corpuscular Volume 92.3 FL (87-102); Mean Platelet Volume 12.3 FL (9.6-12.0); Monocytes # 0.6 10*3/uL (0.11-0.8); Monocytes % 7.3 % (1.7-12.7); Neutrophils # 6.6 10*3/uL (1.4-7.4); Neutrophils % 78.1 % (38.7-73.9); Platelet Count 259 T/CUMM (130-400); Red Blood Count 3.12 MC/CUMM (3.8-5.5); Red Cell Distribution Width 14.8 % (9.3-17.3); White Blood Count 8.4 T/CUMM (4-12)
[2017-12-11 06:27] LABS: Albumin 3.7 G/DL (3.4-5.0); Bilirubin,Total 0.6 MG/DL (0.2-1.0); Calcium 8.7 MG/DL (8.5-10.1); Osmolality,Calculated 280.8 MOS/KG (273-304); Potassium 3.7 MMOL/L (3.5-5.1); Thyroid Stimulating Hormone 2.64 uIU/ml (0.358-3.74); Total Protein 6.9 G/DL (6.4-8.3)
[2017-12-11 07:48] LABS: Apearance,Urine CLEAR (Clear); Bilirubin,Urine Negative (Negative); Blood, Urine Negative (Negative); Glucose,Urine (UA) 50 mg/dL (Negative); Ketones,Urine 5 mg/dL (Negative); Nitrite,Urine Negative (Negative); Protein,Urine 30 MG/DL; RBC,Urine <1 /HPF (0-4); Urine Color Straw (Yellow); Urine Specific Gravity 1.006 (1.001-1.035); Urine Urobilinogen < 2.0 EU/DL (0.2-1.0); WBC,Urine <1 /HPF (0-6)
[2017-12-11] MEDS: INSULIN LISPRO 100 UNIT/ML SUBCUT SCH ×4 (08:58→21:27)
[2017-12-11] MEDS: FUROSEMIDE 40 MG/4 ML VIAL IV SCH (08:59)
[2017-12-11] MEDS: PANTOPRAZOLE 40 MG TABLET PO SCH (09:00)
[2017-12-11] MEDS: amLODIPine 5 MG TABLET PO SCH (09:00)
[2017-12-11] MEDS: cloNIDine 0.1 MG TABLET PO SCH ×2 (09:00→21:34)
[2017-12-11 18:53] LABS: Hepatitis A Ab IgM Quant 0.26 Index; Hepatitis A Ab IgM Result Negative (Negative); Hepatitis B Core IgM Quant < 0.05 Index; Hepatitis B Core IgM Result Negative (Negative); Hepatitis B Surface Ag Quant 0.19 Index; Hepatitis B Surface Ag Result Negative (Negative); Hepatitis C Virus Ab Quant 0.09 Index; Hepatitis C Virus Ab Result Negative (Negative)
[2017-12-11] MEDS ORDERED: MEPERIDINE 50 MG TABLET PO ONE ×2 (21:17→21:30)
[2017-12-12] MEDS: INSULIN LISPRO 100 UNIT/ML SUBCUT SCH ×4 (08:32→21:22)
[2017-12-12] MEDS: FUROSEMIDE 40 MG/4 ML VIAL IV SCH (08:33)
[2017-12-12] MEDS: cloNIDine 0.1 MG TABLET PO SCH (08:34)
[2017-12-12] MEDS: amLODIPine 5 MG TABLET PO SCH (08:35)
[2017-12-12] MEDS: PANTOPRAZOLE 40 MG TABLET PO SCH (08:35)
[2017-12-12] MEDS ORDERED: ASPIRIN EC 81 MG TABLET PO SCH (13:00)
[2017-12-12] MEDS ORDERED: ASPIRIN CHEW 81 MG TABLET PO ONE (14:28)
[2017-12-12] MEDS ORDERED: ENOXAPARIN 60 MG/0.6 ML SYRINGE SUBCUT ONE (17:03)
[2017-12-12] MEDS ORDERED: CARVEDILOL 3.125 MG TABLET PO ONE (17:04)
[2017-12-12] MEDS ORDERED: CARVEDILOL 6.25 MG TABLET PO SCH (21:00)
[2017-12-12] MEDS: CARVEDILOL 12.5 MG TABLET PO SCH (21:22)
[2017-12-13 05:00] LABS: Basophils # 0.1 10*3/uL (0.0-0.2); Eosinophils # 0.3 10*3/uL (0.0-0.87); Eosinophils % 5.2 % (0.00-10.9); Hemoglobin 8.5 GM/DL (12.0-16.0); Immature Granulocytes % 0.2 %; Immature Granulocytes Absolute 0.01 #; Lymphocytes # 1.6 10*3/uL (1.4-4.0); Lymphocytes % 25.9 % (21.3-54.2); Mean Corpuscular HGB Conc 31.5 GM/DL (32-36); Mean Corpuscular Hemoglobin 31 PG (27-34); Mean Corpuscular Volume 97.1 FL (87-102); Mean Platelet Volume 12.5 FL (9.6-12.0); Monocytes # 0.7 10*3/uL (0.11-0.8); Monocytes % 12.1 % (1.7-12.7); Neutrophils # 3.4 10*3/uL (1.4-7.4); Neutrophils % 55.6 % (38.7-73.9); Platelet Count 239 T/CUMM (130-400); Red Blood Count 2.78 MC/CUMM (3.8-5.5); Red Cell Distribution Width 15.4 % (9.3-17.3); White Blood Count 6.1 T/CUMM (4-12)
[2017-12-13 05:19] LABS: Risk Ratio 2.1; VLDL CHOLESTEROL 18.6 MG/DL
[2017-12-13 05:21] LABS: Calcium 8.5 MG/DL (8.5-10.1); Osmolality,Calculated 283.7 MOS/KG (273-304); Potassium 4.1 MMOL/L (3.5-5.1)
[2017-12-13] MEDS ORDERED: POTASSIUM CHLORIDE RIDER 10 MEQ in PREMIX 1 EACH IV PRN (07:49)
[2017-12-13] MEDS ORDERED: DIAZEPAM 5 MG TABLET PO ONE (07:49)
[2017-12-13] MEDS ORDERED: MAGNESIUM SULF RIDER 2 GM in PREMIX 1 EACH IV PRN (07:49)
[2017-12-13] MEDS ORDERED: diphenhydrAMINE CAP 25 MG CAPSULE PO ONE (07:49)
[2017-12-13] MEDS ORDERED: DIAZEPAM 5 MG TABLET ONE (07:54)
[2017-12-13] MEDS ORDERED: diphenhydrAMINE CAP 25 MG CAPSULE ONE (07:55)
[2017-12-13] MEDS: ASPIRIN CHEW 81 MG TABLET PO SCH ×2 (07:56→09:01)
[2017-12-13] MEDS: CARVEDILOL 12.5 MG TABLET PO SCH ×4 (07:56→18:06)
[2017-12-13] MEDS: PANTOPRAZOLE 40 MG TABLET PO SCH ×2 (07:56→09:04)
[2017-12-13] MEDS ORDERED: SODIUM CHLORIDE 0.45% 1,000 ML IV SCH (08:00)
[2017-12-13] MEDS ORDERED: SODIUM CHLORIDE 0.9% 1,000 ML IV SCH (08:00)
[2017-12-13] MEDS: INSULIN LISPRO 100 UNIT/ML SUBCUT SCH ×4 (08:19→20:45)
[2017-12-13] MEDS ORDERED: LIDOCAINE 1% 20 ML VIAL ONE (08:20)
[2017-12-13] MEDS ORDERED: fentaNYL 100 MCG/2 ML VIAL ONE (08:22)
[2017-12-13] MEDS ORDERED: MIDAZOLAM 2 MG/2 ML VIAL ONE (08:22)
[2017-12-13] MEDS ORDERED: HEPARIN 5,000 UNIT/1 ML VIAL ONE (08:39)
[2017-12-13] MEDS: FUROSEMIDE 40 MG/4 ML VIAL IV SCH (09:03)
[2017-12-13] MEDS ORDERED: GLUCAGON 1 MG VIAL IM PRN (09:46)
[2017-12-13] MEDS ORDERED: CLOPIDOGREL 300 MG TABLET PO ONE (09:52)
[2017-12-13] MEDS: CAPTOPRIL 6.25 MG TABLET PO SCH ×2 (10:47→20:51)
[2017-12-13] MEDS: ROSUVASTATIN 10 MG TABLET PO SCH (20:51)
[2017-12-14] MEDS: CARVEDILOL 12.5 MG TABLET PO SCH ×4 (00:05→20:05)
[2017-12-14 03:41] LABS: Basophils # 0.1 10*3/uL (0.0-0.2); Basophils % 0.7 % (0.0-0.8); Eosinophils # 0.2 10*3/uL (0.0-0.87); Eosinophils % 2.9 % (0.00-10.9); Hematocrit 27.1 VOL% (35.7-47.0); Hemoglobin 8.9 GM/DL (12.0-16.0); Immature Granulocytes % 0.4 %; Immature Granulocytes Absolute 0.03 #; Lymphocytes # 1.1 10*3/uL (1.4-4.0); Lymphocytes % 15.4 % (21.3-54.2); Mean Corpuscular HGB Conc 32.8 GM/DL (32-36); Mean Corpuscular Hemoglobin 31 PG (27-34); Mean Corpuscular Volume 94.8 FL (87-102); Mean Platelet Volume 12.6 FL (9.6-12.0); Monocytes # 0.9 10*3/uL (0.11-0.8); Monocytes % 11.7 % (1.7-12.7); Neutrophils # 5.1 10*3/uL (1.4-7.4); Neutrophils % 68.9 % (38.7-73.9); Platelet Count 240 T/CUMM (130-400); Red Blood Count 2.86 MC/CUMM (3.8-5.5); Red Cell Distribution Width 15.4 % (9.3-17.3); White Blood Count 7.3 T/CUMM (4-12)
[2017-12-14 04:29] LABS: Calcium 8.7 MG/DL (8.5-10.1); Potassium 4.4 MMOL/L (3.5-5.1)
[2017-12-14] MEDS: INSULIN LISPRO 100 UNIT/ML SUBCUT SCH ×4 (07:41→20:12)
[2017-12-14] MEDS: CAPTOPRIL 6.25 MG TABLET PO SCH (08:48)
[2017-12-14] MEDS: CLOPIDOGREL 75 MG TABLET PO SCH (08:49)
[2017-12-14] MEDS: FUROSEMIDE 40 MG/4 ML VIAL IV SCH (08:49)
[2017-12-14] MEDS: ASPIRIN CHEW 81 MG TABLET PO SCH (08:49)
[2017-12-14] MEDS: PANTOPRAZOLE 40 MG TABLET PO SCH (08:49)
[2017-12-14] MEDS: ROSUVASTATIN 10 MG TABLET PO SCH (20:05)
[2017-12-15 03:52] LABS: Basophils % 0.7 % (0.0-0.8); Eosinophils # 0.3 10*3/uL (0.0-0.87); Eosinophils % 4.2 % (0.00-10.9); Hematocrit 26.5 VOL% (35.7-47.0); Hemoglobin 8.4 GM/DL (12.0-16.0); Immature Granulocytes % 0.3 %; Immature Granulocytes Absolute 0.02 #; Lymphocytes # 1.4 10*3/uL (1.4-4.0); Lymphocytes % 23.9 % (21.3-54.2); Mean Corpuscular HGB Conc 31.7 GM/DL (32-36); Mean Corpuscular Hemoglobin 31 PG (27-34); Mean Corpuscular Volume 97.4 FL (87-102); Mean Platelet Volume 12.1 FL (9.6-12.0); Monocytes # 0.8 10*3/uL (0.11-0.8); Neutrophils # 3.4 10*3/uL (1.4-7.4); Neutrophils % 56.9 % (38.7-73.9); Platelet Count 241 T/CUMM (130-400); Red Blood Count 2.72 MC/CUMM (3.8-5.5); Red Cell Distribution Width 15.2 % (9.3-17.3)
[2017-12-15 04:54] LABS: Osmolality,Calculated 284.1 MOS/KG (273-304); Potassium 4.7 MMOL/L (3.5-5.1)
[2017-12-15] MEDS: INSULIN LISPRO 100 UNIT/ML SUBCUT SCH ×2 (07:57→13:05)
[2017-12-15] MEDS: CARVEDILOL 12.5 MG TABLET PO SCH (08:32)
[2017-12-15] MEDS: CLOPIDOGREL 75 MG TABLET PO SCH (08:32)
[2017-12-15] MEDS: ASPIRIN CHEW 81 MG TABLET PO SCH (08:32)
[2017-12-15] MEDS: FUROSEMIDE 40 MG/4 ML VIAL IV SCH (08:32)
[2017-12-15] MEDS: PANTOPRAZOLE 40 MG TABLET PO SCH (08:32)
[2017-12-15] MEDS ORDERED: CAPTOPRIL 6.25 MG TABLET PO SCH (09:00)
[2017-12-15 12:16] VITALS: BP 129/63
== END 2017-12-15 13:17 | disposition home or self-care (01) | DRG 280 ==
LOC: N.TELES 02:14
PROVIDERS: ADMIT Internal Medicine; ATTEND Internal Medicine
PROC: CLCCHCL (ICD-10-PCS; 2017-12-13 08:45)

== ENCOUNTER 2021-11-16 12:46 | Inpatient (IN) ==
[2021-11-16 13:21] LABS: Basophils % 0.5 % (0.0-0.8); Eosinophils # 0.1 10*3/uL (0.0-0.87); Eosinophils % 0.7 % (0.00-10.9); Hematocrit 36.5 VOL% (35.7-47.0); Hemoglobin 11.2 GM/DL (12.0-16.0); Immature Granulocytes % 0.4 %; Immature Granulocytes Absolute 0.03 #; Lymphocytes # 0.8 10*3/uL (1.4-4.0); Lymphocytes % 11.4 % (21.3-54.2); Mean Corpuscular HGB Conc 30.7 GM/DL (32-36); Mean Platelet Volume 12.7 FL (9.6-12.0); Monocytes # 0.9 10*3/uL (0.11-0.8); Monocytes % 12.5 % (1.7-12.7); Neutrophils % 74.5 % (38.7-73.9); Platelet Count 209 T/CUMM (130-400); Red Cell Distribution Width 17.7 % (9.3-17.3); White Blood Count 7.4 T/CUMM (4-12)
[2021-11-16 13:41] LABS: Albumin 3.7 G/DL (3.4-5.0); Bilirubin,Total 0.4 MG/DL (0.20-1.00); Osmolality,Calculated 281.4 MOS/KG (273-304); Potassium 4.2 MMOL/L (3.5-5.1)
[2021-11-16 14:08] LABS: Arterial Base Excess iSTAT 4 MMOL/L (-2.5-2.5); Arterial Bicarbonate iSTAT 28.7 MMOL/L (20-26); Arterial O2 Saturation iSTAT 78 % (95-100); Arterial PCO2 iSTAT 43 MM HG (35-48); Arterial PO2 iSTAT 42 MM HG (80-95); Arterial Total CO2 iSTAT 30 MMO/L (23-27); Arterial pH iSTAT 7.431 (7.35-7.45)
[2021-11-16] MEDS ORDERED: FUROSEMIDE 40 MG/4 ML VIAL IV STA (15:52)
[2021-11-16] MEDS ORDERED: GLUCAGON 1 MG VIAL IM PRN (17:04)
[2021-11-16] MEDS ORDERED: ONDANSETRON 4 MG/2 ML VIAL IV PRN (17:09)
[2021-11-16] MEDS ORDERED: ACETAMINOPHEN 325 MG TABLET PO PRN (17:09)
[2021-11-16] MEDS ORDERED: hydrALAZINE 20 MG/1 ML VIAL IV PRN (17:09)
[2021-11-16] MEDS ORDERED: ALBUTEROL/IPRATROPIUM 3 ML NEB RESP TX PRN (17:09)
[2021-11-16] MEDS ORDERED: NITROGLYCERIN SL 0.4 MG TABLET SL PRN (17:10)
[2021-11-16] MEDS ORDERED: DEXTROSE 10% 250 ML BAG IV PRN (17:33)
[2021-11-16] MEDS: ENOXAPARIN 30 MG/0.3 ML SYRINGE SUBCUT SCH (22:32)
[2021-11-16] MEDS: ROSUVASTATIN 10 MG TABLET PO SCH (22:32)
[2021-11-16] MEDS: ENALAPRIL 5 MG TABLET PO SCH (22:32)
[2021-11-16] MEDS: CALCIUM ACETATE 667 MG CAPSULE PO SCH (22:32)
[2021-11-17] MEDS: INSULIN LISPRO 100 UNIT/ML SUBCUT SCH ×5 (00:23→21:20)
[2021-11-17 04:46] LABS: Basophils # 0.1 10*3/uL (0.0-0.2); Basophils % 0.9 % (0.0-0.8); Eosinophils # 0.1 10*3/uL (0.0-0.87); Eosinophils % 1.9 % (0.00-10.9); Hematocrit 32.8 VOL% (35.7-47.0); Hemoglobin 10.2 GM/DL (12.0-16.0); Immature Granulocytes % 0.5 %; Immature Granulocytes Absolute 0.03 #; Lymphocytes # 0.8 10*3/uL (1.4-4.0); Lymphocytes % 14.4 % (21.3-54.2); Mean Corpuscular HGB Conc 31.1 GM/DL (32-36); Mean Corpuscular Volume 88.2 FL (87-102); Mean Platelet Volume 13.3 FL (9.6-12.0); Monocytes # 0.8 10*3/uL (0.11-0.8); Monocytes % 14.8 % (1.7-12.7); Neutrophils % 67.5 % (38.7-73.9); Platelet Count 195 T/CUMM (130-400); Red Blood Count 3.72 MC/CUMM (3.8-5.5); Red Cell Distribution Width 17.8 % (9.3-17.3); White Blood Count 5.7 T/CUMM (4-12)
[2021-11-17 05:16] LABS: Calcium 8.7 MG/DL (8.5-10.1); Osmolality,Calculated 281.2 MOS/KG (273-304); Potassium 4.2 MMOL/L (3.5-5.1); Risk Ratio 2.65; Thyroid Stimulating Hormone 2.73 uIU/ml (0.358-3.74)
[2021-11-17] MEDS ORDERED: FUROSEMIDE 40 MG/4 ML VIAL IV SCH ×2 (08:00→16:00)
[2021-11-17] MEDS ORDERED: ENALAPRIL 5 MG TABLET PO ONE (10:58)
[2021-11-17] MEDS: amLODIPine 10 MG TABLET PO SCH (11:07)
[2021-11-17] MEDS: PANTOPRAZOLE 40 MG TABLET PO SCH (11:07)
[2021-11-17] MEDS: ASPIRIN CHEW 81 MG TABLET PO SCH (11:07)
[2021-11-17] MEDS: CALCIUM ACETATE 667 MG CAPSULE PO SCH ×4 (11:07→21:20)
[2021-11-17] MEDS: MULTIVITAMIN (CENTRUM) TABLET PO SCH (11:08)
[2021-11-17] MEDS: CLOPIDOGREL 75 MG TABLET PO SCH (11:08)
[2021-11-17] MEDS: BISOPROLOL 5 MG TABLET PO SCH (11:24)
[2021-11-17] MEDS: ENALAPRIL 5 MG TABLET PO SCH ×2 (11:43→21:21)
[2021-11-17 12:23] LABS: Hepatitis B Surface Ag Quant 0.36 Index; Hepatitis B Surface Ag Result Non-Reactive (NonReactive)
[2021-11-17] MEDS: ENOXAPARIN 30 MG/0.3 ML SYRINGE SUBCUT SCH (18:46)
[2021-11-17] MEDS: ROSUVASTATIN 10 MG TABLET PO SCH (21:19)
[2021-11-18 04:05] LABS: Hematocrit 33.2 VOL% (35.7-47.0); Lymphocytes # 0.8 10*3/uL (1.4-4.0); Lymphocytes % 14.9 % (21.3-54.2)
[2021-11-18 04:15] LABS: Basophils % 0.6 % (0.0-0.8); Eosinophils # 0.1 10*3/uL (0.0-0.87); Eosinophils % 2.3 % (0.00-10.9); Hemoglobin 10.2 GM/DL (12.0-16.0); Immature Granulocytes % 0.6 %; Immature Granulocytes Absolute 0.03 #; Mean Corpuscular HGB Conc 30.7 GM/DL (32-36); Mean Corpuscular Volume 89.2 FL (87-102); Mean Platelet Volume 12.7 FL (9.6-12.0); Monocytes # 0.8 10*3/uL (0.11-0.8); Monocytes % 16.1 % (1.7-12.7); Neutrophils % 65.5 % (38.7-73.9); Platelet Count 187 T/CUMM (130-400); Red Blood Count 3.72 MC/CUMM (3.8-5.5); Red Cell Distribution Width 17.6 % (9.3-17.3); White Blood Count 5.2 T/CUMM (4-12)
[2021-11-18 04:21] LABS: Calcium 9.1 MG/DL (8.5-10.1); Osmolality,Calculated 282.5 MOS/KG (273-304); Potassium 4.1 MMOL/L (3.5-5.1)
[2021-11-18 04:40] LABS: Eosinophils 1 % (0-10); Lymphocytes 11 % (20-55); Platelet Estimate Normal; Total Cells Counted 100
[2021-11-18] MEDS: ASPIRIN CHEW 81 MG TABLET PO SCH (08:44)
[2021-11-18] MEDS: amLODIPine 10 MG TABLET PO SCH (08:44)
[2021-11-18] MEDS: BISOPROLOL 5 MG TABLET PO SCH (08:44)
[2021-11-18] MEDS: MULTIVITAMIN (CENTRUM) TABLET PO SCH (08:45)
[2021-11-18] MEDS: ENALAPRIL 5 MG TABLET PO SCH ×2 (08:45→21:52)
[2021-11-18] MEDS: CLOPIDOGREL 75 MG TABLET PO SCH (08:45)
[2021-11-18] MEDS: PANTOPRAZOLE 40 MG TABLET PO SCH (08:45)
[2021-11-18] MEDS: CALCIUM ACETATE 667 MG CAPSULE PO SCH ×4 (08:46→21:52)
[2021-11-18] MEDS: INSULIN LISPRO 100 UNIT/ML SUBCUT SCH ×4 (09:06→21:51)
[2021-11-18] MEDS ORDERED: AZITHROMYCIN 250 MG TABLET PO ONE (10:32)
[2021-11-18] MEDS: ENOXAPARIN 30 MG/0.3 ML SYRINGE SUBCUT SCH (18:03)
[2021-11-18] MEDS: ROSUVASTATIN 10 MG TABLET PO SCH (21:51)
[2021-11-19 05:22] LABS: Basophils # 0.1 10*3/uL (0.0-0.2); Basophils % 1.1 % (0.0-0.8); Eosinophils # 0.1 10*3/uL (0.0-0.87); Eosinophils % 2.4 % (0.00-10.9); Hematocrit 35.5 VOL% (35.7-47.0); Hemoglobin 11.1 GM/DL (12.0-16.0); Immature Granulocytes % 0.2 %; Immature Granulocytes Absolute 0.01 #; Lymphocytes # 1.3 10*3/uL (1.4-4.0); Lymphocytes % 23.1 % (21.3-54.2); Mean Corpuscular HGB Conc 31.3 GM/DL (32-36); Mean Corpuscular Volume 89.6 FL (87-102); Mean Platelet Volume 12.7 FL (9.6-12.0); Monocytes # 0.8 10*3/uL (0.11-0.8); Monocytes % 14.2 % (1.7-12.7); Red Blood Count 3.96 MC/CUMM (3.8-5.5); Red Cell Distribution Width 17.7 % (9.3-17.3); White Blood Count 5.5 T/CUMM (4-12)
[2021-11-19 05:26] LABS: Platelet Count 231 T/CUMM (130-400)
[2021-11-19 05:54] LABS: Potassium 4.6 MMOL/L (3.5-5.1)
[2021-11-19 07:15] LABS: Anisocytosis 1+; Macrocytosis 1+; Platelet Estimate Normal; Target Cells Few; Tear Drop Cells Few
[2021-11-19] MEDS: INSULIN LISPRO 100 UNIT/ML SUBCUT SCH ×4 (08:06→20:57)
[2021-11-19] MEDS: cefTRIAXone 1,000 MG in SODIUM CHLORIDE 0.9% 100 ML IV SCH ×2 (08:28→20:59)
[2021-11-19] MEDS: amLODIPine 10 MG TABLET PO SCH (10:52)
[2021-11-19] MEDS: AZITHROMYCIN 250 MG TABLET PO SCH (10:52)
[2021-11-19] MEDS: ASPIRIN CHEW 81 MG TABLET PO SCH (10:53)
[2021-11-19] MEDS: PANTOPRAZOLE 40 MG TABLET PO SCH (10:53)
[2021-11-19] MEDS: CLOPIDOGREL 75 MG TABLET PO SCH (10:53)
[2021-11-19] MEDS: CALCIUM ACETATE 667 MG CAPSULE PO SCH ×4 (10:54→20:58)
[2021-11-19] MEDS: ENALAPRIL 5 MG TABLET PO SCH ×2 (10:54→20:59)
[2021-11-19] MEDS: MULTIVITAMIN (CENTRUM) TABLET PO SCH (10:55)
[2021-11-19] MEDS: BISOPROLOL 5 MG TABLET PO SCH (10:55)
[2021-11-19] MEDS: ENOXAPARIN 30 MG/0.3 ML SYRINGE SUBCUT SCH (18:13)
[2021-11-19] MEDS: ROSUVASTATIN 10 MG TABLET PO SCH (20:57)
[2021-11-20 05:36] LABS: Basophils % 0.8 % (0.0-0.8); Eosinophils # 0.1 10*3/uL (0.0-0.87); Eosinophils % 2.3 % (0.00-10.9); Hematocrit 33.1 VOL% (35.7-47.0); Hemoglobin 10.3 GM/DL (12.0-16.0); Immature Granulocytes % 0.4 %; Immature Granulocytes Absolute 0.02 #; Lymphocytes # 0.7 10*3/uL (1.4-4.0); Lymphocytes % 15.2 % (21.3-54.2); Mean Corpuscular HGB Conc 31.1 GM/DL (32-36); Mean Corpuscular Volume 89.9 FL (87-102); Mean Platelet Volume 13.2 FL (9.6-12.0); Monocytes # 0.6 10*3/uL (0.11-0.8); Monocytes % 12.9 % (1.7-12.7); Neutrophils % 68.4 % (38.7-73.9); Platelet Count 199 T/CUMM (130-400); Red Blood Count 3.68 MC/CUMM (3.8-5.5); Red Cell Distribution Width 17.4 % (9.3-17.3); White Blood Count 4.9 T/CUMM (4-12)
[2021-11-20 05:57] LABS: Calcium 9.9 MG/DL (8.5-10.1); Osmolality,Calculated 283.5 MOS/KG (273-304); Potassium 5.1 MMOL/L (3.5-5.1)
[2021-11-20 07:08] LABS: Ovalocytes Few
[2021-11-20 07:09] LABS: Anisocytosis 1+; Platelet Estimate Normal; Polychromasia Slight
[2021-11-20] MEDS: INSULIN LISPRO 100 UNIT/ML SUBCUT SCH ×4 (07:39→21:37)
[2021-11-20] MEDS: CALCIUM ACETATE 667 MG CAPSULE PO SCH ×4 (09:43→21:37)
[2021-11-20] MEDS: ASPIRIN CHEW 81 MG TABLET PO SCH (13:03)
[2021-11-20] MEDS: ENALAPRIL 5 MG TABLET PO SCH ×2 (13:03→21:37)
[2021-11-20] MEDS: AZITHROMYCIN 250 MG TABLET PO SCH (13:04)
[2021-11-20] MEDS: CLOPIDOGREL 75 MG TABLET PO SCH (13:04)
[2021-11-20] MEDS: PANTOPRAZOLE 40 MG TABLET PO SCH (13:05)
[2021-11-20] MEDS: BISOPROLOL 5 MG TABLET PO SCH (13:06)
[2021-11-20] MEDS: MULTIVITAMIN (CENTRUM) TABLET PO SCH (13:06)
[2021-11-20] MEDS: amLODIPine 10 MG TABLET PO SCH (13:06)
[2021-11-20] MEDS: ENOXAPARIN 30 MG/0.3 ML SYRINGE SUBCUT SCH (17:26)
[2021-11-20] MEDS: ROSUVASTATIN 10 MG TABLET PO SCH (21:37)
[2021-11-20] MEDS: cefTRIAXone 1,000 MG in SODIUM CHLORIDE 0.9% 100 ML IV SCH (23:13)
[2021-11-21 04:33] LABS: Basophils % 0.8 % (0.0-0.8); Eosinophils # 0.1 10*3/uL (0.0-0.87); Eosinophils % 2.1 % (0.00-10.9); Hematocrit 31.9 VOL% (35.7-47.0); Hemoglobin 9.6 GM/DL (12.0-16.0); Immature Granulocytes % 0.2 %; Immature Granulocytes Absolute 0.01 #; Lymphocytes # 0.9 10*3/uL (1.4-4.0); Lymphocytes % 18.7 % (21.3-54.2); Mean Corpuscular HGB Conc 30.1 GM/DL (32-36); Mean Corpuscular Volume 90.6 FL (87-102); Mean Platelet Volume 12.7 FL (9.6-12.0); Monocytes # 0.8 10*3/uL (0.11-0.8); Monocytes % 15.6 % (1.7-12.7); Neutrophils % 62.6 % (38.7-73.9); Platelet Count 188 T/CUMM (130-400); Red Blood Count 3.52 MC/CUMM (3.8-5.5); Red Cell Distribution Width 17.3 % (9.3-17.3); White Blood Count 4.8 T/CUMM (4-12)
[2021-11-21 04:53] LABS: Calcium 9.3 MG/DL (8.5-10.1); Potassium 5.3 MMOL/L (3.5-5.1)
[2021-11-21 05:06] LABS: Eosinophils 2 % (0-10); Lymphocytes 18 % (20-55); Platelet Estimate Adequate; Total Cells Counted 100
[2021-11-21 08:41] VITALS: BP 161/67
[2021-11-21] MEDS: INSULIN LISPRO 100 UNIT/ML SUBCUT SCH ×2 (08:54→12:00)
[2021-11-21] MEDS ORDERED: ENALAPRIL 2.5 MG TABLET PO SCH (09:00)
[2021-11-21] MEDS ORDERED: hydrALAZINE 10 MG TABLET PO SCH (09:00)
[2021-11-21] MEDS ORDERED: ENALAPRIL 5 MG TABLET PO SCH (09:00)
[2021-11-21] MEDS: CLOPIDOGREL 75 MG TABLET PO SCH (09:12)
[2021-11-21] MEDS: PANTOPRAZOLE 40 MG TABLET PO SCH (09:12)
[2021-11-21] MEDS: AZITHROMYCIN 250 MG TABLET PO SCH (09:12)
[2021-11-21] MEDS: ASPIRIN CHEW 81 MG TABLET PO SCH (09:12)
[2021-11-21] MEDS: MULTIVITAMIN (CENTRUM) TABLET PO SCH (09:12)
[2021-11-21] MEDS: amLODIPine 10 MG TABLET PO SCH (09:12)
[2021-11-21] MEDS: BISOPROLOL 5 MG TABLET PO SCH (09:12)
[2021-11-21] MEDS: CALCIUM ACETATE 667 MG CAPSULE PO SCH (09:13)
[2021-11-21] MEDS ORDERED: LEVOFLOXACIN 250 MG TABLET PO SCH (11:00)
== END 2021-11-21 12:03 | disposition home health service (06) | DRG 193 ==
LOC: N.TELEN 12:46 → N.ED 12:46 → N.TELEN 18:49 → SUATTDRO 11-17 08:51
PROVIDERS: ADMIT Internal Medicine; ATTEND Hospitalist

== ENCOUNTER 2022-04-27 21:01 | Inpatient (IN) ==
[2022-04-27] MEDS ORDERED: ALBUTEROL/IPRATROPIUM 3 ML NEB RESP TX STA (22:48)
[2022-04-27 23:00] LABS: Basophils % 0.3 % (0.0-0.8); Eosinophils % 0.3 % (0.00-10.9); Hematocrit 30.4 VOL% (35.7-47.0); Hemoglobin 9.7 GM/DL (12.0-16.0); Immature Granulocytes % 0.7 %; Immature Granulocytes Absolute 0.05 #; Lymphocytes # 0.2 10*3/uL (1.4-4.0); Mean Corpuscular HGB Conc 31.9 GM/DL (32-36); Mean Corpuscular Volume 98.1 FL (87-102); Mean Platelet Volume 12.4 FL (9.6-12.0); Monocytes # 0.7 10*3/uL (0.11-0.8); Monocytes % 9.7 % (1.7-12.7); Platelet Count 174 T/CUMM (130-400); Red Cell Distribution Width 18.3 % (9.3-17.3); White Blood Count 7.6 T/CUMM (4-12)
[2022-04-27] MEDS ORDERED: ALBUTEROL 2.5 MG/3 ML NEB RESP TX ONE (23:00)
[2022-04-27] MEDS ORDERED: IPRATROPIUM 500 MCG/2.5 ML NEB RESP TX ONE (23:00)
[2022-04-27 23:18] LABS: Albumin 4.2 G/DL (3.4-5.0); Bilirubin,Total 0.6 MG/DL (0.20-1.00); Calcium 8.8 MG/DL (8.5-10.1); Osmolality,Calculated 287.3 MOS/KG (273-304); Potassium 3.8 MMOL/L (3.5-5.1); Total Protein 7.1 G/DL (6.4-8.2)
[2022-04-27 23:36] LABS: Lymphocytes 4 % (20-55); Platelet Estimate Adequate; Total Cells Counted 100
[2022-04-28] MEDS ORDERED: hydrALAZINE 20 MG/1 ML VIAL IV STA (00:11)
[2022-04-28] MEDS ORDERED: ZALEPLON 5 MG CAPSULE PO PRN (00:34)
[2022-04-28] MEDS ORDERED: ACETAMINOPHEN 325 MG TABLET PO PRN (00:34)
[2022-04-28] MEDS ORDERED: ONDANSETRON 4 MG/2 ML VIAL IV PRN (00:34)
[2022-04-28] MEDS ORDERED: NICOTINE 21 MG/24 HR PATCH TRANSDERM PRN (00:34)
[2022-04-28] MEDS ORDERED: hydrALAZINE 20 MG/1 ML VIAL IV PRN (00:34)
[2022-04-28] MEDS ORDERED: guaiFENesin/DM ER 600-30 MG TABLET PO PRN (00:34)
[2022-04-28] MEDS ORDERED: diphenhydrAMINE CAP 25 MG CAPSULE PO PRN (00:34)
[2022-04-28] MEDS ORDERED: IPRATROPIUM 500 MCG/2.5 ML NEB RESP TX ONE ×5 (01:08→23:53)
[2022-04-28] MEDS ORDERED: ALBUTEROL 2.5 MG/3 ML NEB RESP TX ONE ×5 (01:08→23:53)
[2022-04-28] MEDS: ALBUTEROL/IPRATROPIUM 3 ML NEB RESP TX SCH ×4 (01:19→19:27)
[2022-04-28 04:53] LABS: Basophils % 0.3 % (0.0-0.8); Eosinophils % 0.1 % (0.00-10.9); Hematocrit 27.9 VOL% (35.7-47.0); Hemoglobin 8.7 GM/DL (12.0-16.0); Immature Granulocytes % 0.7 %; Immature Granulocytes Absolute 0.05 #; Lymphocytes # 0.4 10*3/uL (1.4-4.0); Lymphocytes % 4.9 % (21.3-54.2); Mean Corpuscular HGB Conc 31.2 GM/DL (32-36); Mean Corpuscular Volume 98.2 FL (87-102); Mean Platelet Volume 13.5 FL (9.6-12.0); Monocytes # 1.1 10*3/uL (0.11-0.8); Monocytes % 15.8 % (1.7-12.7); Neutrophils % 78.2 % (38.7-73.9); Platelet Count 147 T/CUMM (130-400); Red Blood Count 2.84 MC/CUMM (3.8-5.5); Red Cell Distribution Width 18.2 % (9.3-17.3); White Blood Count 7.1 T/CUMM (4-12)
[2022-04-28 05:04] LABS: Calcium 8.7 MG/DL (8.5-10.1); Osmolality,Calculated 287.3 MOS/KG (273-304); Potassium 4.1 MMOL/L (3.5-5.1)
[2022-04-28 06:26] LABS: Eosinophils 1 % (0-10); Hypochromia Slight; Lymphocytes 3 % (20-55); Platelet Estimate Adequate; Total Cells Counted 100
[2022-04-28] MEDS: INSULIN LISPRO 100 UNIT/ML SUBCUT SCH ×4 (07:31→20:58)
[2022-04-28] MEDS: PANTOPRAZOLE 40 MG TABLET PO SCH (08:34)
[2022-04-28] MEDS: methylPREDNISolone 4 MG TABLET PO SCH (08:34)
[2022-04-28] MEDS: ASPIRIN CHEW 81 MG TABLET PO SCH (08:34)
[2022-04-28] MEDS: amLODIPine 10 MG TABLET PO SCH (08:34)
[2022-04-28] MEDS ORDERED: GLUCAGON 1 MG VIAL IM PRN (08:40)
[2022-04-28] MEDS ORDERED: DEXTROSE 10% 250 ML BAG IV PRN (08:40)
[2022-04-28] MEDS ORDERED: FUROSEMIDE 40 MG/4 ML VIAL IV ONE (09:05)
[2022-04-28 11:14] LABS: Hepatitis B Core IgM Quant < 0.05 Index; Hepatitis B Surface Ag Quant < 0.10 Index; Hepatitis B Surface Ag Result Non-Reactive (NonReactive); Hepatitis C Virus Ab Quant < 0.02 Index; Hepatitis C Virus Ab Result Non-Reactive (NonReactive)
[2022-04-28] MEDS: ISOSORBIDE MONONITRATE 30 MG TABLET PO SCH (15:35)
[2022-04-28] MEDS: carvediloL 6.25 MG TABLET PO SCH (20:59)
[2022-04-28] MEDS: ROSUVASTATIN 10 MG TABLET PO SCH (20:59)
[2022-04-29] MEDS: ALBUTEROL/IPRATROPIUM 3 ML NEB RESP TX SCH ×4 (00:30→19:30)
[2022-04-29] MEDS ORDERED: ALBUTEROL 2.5 MG/3 ML NEB RESP TX ONE ×2 (07:17→10:58)
[2022-04-29] MEDS ORDERED: IPRATROPIUM 500 MCG/2.5 ML NEB RESP TX ONE ×2 (07:17→10:58)
[2022-04-29] MEDS: INSULIN LISPRO 100 UNIT/ML SUBCUT SCH ×4 (08:21→20:41)
[2022-04-29] MEDS: methylPREDNISolone 4 MG TABLET PO SCH (08:57)
[2022-04-29] MEDS: ASPIRIN CHEW 81 MG TABLET PO SCH (08:57)
[2022-04-29] MEDS: PANTOPRAZOLE 40 MG TABLET PO SCH (08:57)
[2022-04-29] MEDS: ISOSORBIDE MONONITRATE 30 MG TABLET PO SCH (08:57)
[2022-04-29] MEDS: carvediloL 6.25 MG TABLET PO SCH ×2 (08:57→20:44)
[2022-04-29] MEDS: amLODIPine 10 MG TABLET PO SCH (08:57)
[2022-04-29 14:36] LABS: PT Patient Result 11.3 SECS (10.1-12.1); Partial Thromboplastin Time 33.4 SECS (23.7-32.9)
[2022-04-29] MEDS: ROSUVASTATIN 10 MG TABLET PO SCH (20:44)
[2022-04-30] MEDS: ALBUTEROL/IPRATROPIUM 3 ML NEB RESP TX SCH ×3 (01:34→14:22)
[2022-04-30] MEDS: INSULIN LISPRO 100 UNIT/ML SUBCUT SCH (12:37)
[2022-04-30] MEDS: carvediloL 6.25 MG TABLET PO SCH (12:38)
[2022-04-30] MEDS: ASPIRIN CHEW 81 MG TABLET PO SCH (12:38)
[2022-04-30] MEDS: amLODIPine 10 MG TABLET PO SCH (12:38)
[2022-04-30] MEDS: methylPREDNISolone 4 MG TABLET PO SCH (12:38)
[2022-04-30] MEDS: ISOSORBIDE MONONITRATE 30 MG TABLET PO SCH (12:38)
[2022-04-30] MEDS: PANTOPRAZOLE 40 MG TABLET PO SCH (12:38)
[2022-04-30 13:22] VITALS: BP 166/63
== END 2022-04-30 15:05 | disposition home or self-care (01) | DRG 291 ==
LOC: N.EDINP 21:01 → N.ED 21:01 → SUATTDRO 04-28 00:34 → N.5E 04-28 02:01 → SUATTDRO 04-28 02:05 → N.5E 04-28 02:39
PROVIDERS: ADMIT Internal Medicine; ATTEND Internal Medicine